=== PATIENT | female | born 1980 | race Caucasian/White ===

== ENCOUNTER 2017-07-02 09:09 | Day surgery (SDC) | payer BC ==
[2017-07-02] VITALS (7 sets, daily range): BP systolic 92–128; BP diastolic 50–88; PULSE 62–98; RESP 17–20; TEMP 97.8–98; O2SAT 96–98
[~2017-07-02] VITALS: Ht 165.1 cm; Wt 48.6 kg
[~2017-07-02 09:09] MED LIST: CLON0.5T PO; CYMB60CA PO; SODIUM CHLOR 0.9% 1000 ML IV SCH; VIST25CA PO
[2017-07-02] MEDS ORDERED: GABA100C4 PO (09:40)
[2017-07-02] MEDS ORDERED: BACL10TA PO (09:41)
[2017-07-02] MEDS ORDERED: LEXA20TA PO (09:41)
[2017-07-02] MEDS ORDERED: PANT40TA3 PO (09:42)
[2017-07-02] MEDS ORDERED: MORP1TAB24 PO (09:43)
[2017-07-02] MEDS ORDERED: ALEV220T14 PO (09:47)
[2017-07-02] MEDS ORDERED: MIDAZOLAM HCL 2 MG/2 ML VIAL ONE (11:22)
--- NOTE | 2017-07-02 12:05 | PD.RAD ---
Post CT Procedure Prog Note Pre Procedure Diagnosis: (1) Liver enzyme elevation Post Procedure Diagnosis: (1) Liver enzyme elevation Procedure Date: Jul 02, 2017 Supervising Radiologist: Gibson Sanchez Anesthesia: Conscious Sedation Plan of Activity Patient to Unit: [facility] Patient Condition: Good Additional Comments: biopsy of right lobe See PACS Report for procedural detail/treatment Gibson Sanchez MD Jul 02, 2017 12:05
[2017-07-02] MEDS ORDERED: HYDROmorphone HCL 2 MG TAB PO PRN (12:15)
--- NOTE | 2017-07-02 14:18 | RADRPT ---
EXAM DATE/TIME: 07/02/2017 11:37 [place] COMPARISON: No previous studies available for comparison. INDICATIONS : Elevated liver enzymes SEDATION TIME: 30 minutes BIOPSY SITE: liver MEDICATION(S): 1.) 1.5 mg midazolam (Versed) IV 2.) 75 mcg fentanyl (Sublimaze) IV DEVICE(S): 1.) 18 gauge BioPince needle 2.) 16 gauge Banda blunt needle MEDICAL HISTORY : None. SURGICAL HISTORY : None. ENCOUNTER: Initial ACUITY: 1 day PAIN SCORE: 0/10 LOCATION: upper quadrant A total of three core specimen(s) were obtained and sent to the laboratory for pathologic evaluation. PROCEDURE: 1. CT guided liver biopsy. Prior to the procedure informed consent was obtained. Any appropriate prior imaging studies were rev iewed. Using automated exposure control and adjustment of the mA and/or kV according to patient size, radiat ion dose was kept as low as reasonably achievable to obtain optimal diagnostic quality images. DICOM format image data is available electronically for review and comparison. The site was prepped in a sterile fashion. Full sterile technique was used, including cap, mask, omari rile gloves and gown and a large sterile sheet. Hand hygiene and 2% chlorhexidine and/or betadine/al cohol prep was utilized per protocol for cutaneous antisepsis. The skin and subcutaneous tissues wer e infiltrated with local anesthetic solution. With CT guidance the previously identified target was localized. Biopsy was performed using the presc ribed needle as above. 3 core biopsies were obtained. Small amount of Gelfoam was then instilled thro ugh the needle and needle was removed. Adequate hemostasis was obtained with compression at the [facility] site. Follow-up CT scan reveals no hemorrhage. The patient tolerated the procedure well and there were no complications. The patient was returned to the Radiology Outpatient Unit in stable condition. CONCLUSION: Uncomplicated CT guided biopsy. Gibson Sanchez MD on July 02, 2017 at 14:15 Board Certified Radiologist. This report was verified electronically.
== END 2017-07-02 16:00 | disposition home or self-care (01) ==
LOC: HRAD 09:09 → HRIP 09:13 → HRAD 16:00
DX: E83.19 Other disorders of iron metabolism (principal); K76.0 Fatty (change of) liver, not elsewhere classified; R74.8 Abnormal levels of other serum enzymes
CPT/HCPCS: 47000; 77012; 83540; 88307; 88313; J2250; J3010; J7030